=== PATIENT | male | born 1935 | race Caucasian/White ===

== ENCOUNTER 2020-11-07 13:51 | Emergency (ER) | payer MEDICARE, SELFPAY ==
--- NOTE | ~2020-11-07 | XR_ITS ---
EXAMINATION: XR elbow LT min 3V DATE: 11/07/2020 14:35 INDICATION: Red and swollen left elbow post fall 2010 days prior TECHNIQUE: Anteroposterior, two oblique and lateral views of the left elbow were obtained. COMPARISON: None. FINDINGS: Alignment is normal. No fracture. Joint spaces are normal. There are couple small corticated heteroto pic ossicles about the medial epicondyle which could represent sequela of chronic trauma or enthesopa thy. No left elbow joint effusion. No cortical erosions or periosteal reaction. Prominent enthesophyt e at the posterior tip of the olecranon. There is prominent focal overlying soft tissue swelling whic h could be related to hematoma or olecranon bursitis. More diffuse soft tissue swelling with subcutan eous edema about the left elbow extending to the distal upper arm and proximal to mid forearm. IMPRESSION: 1. No left elbow joint effusion or acute osseous abnormality. Reviewed, dictated and finalized at location B.
[2020-11-07 13:54] VITALS: BP 136/57; PULSE 117; RESP 18; TEMP 36.6; O2SAT 96
--- NOTE | 2020-11-07 14:42 | ED.UPPEXIN ---
HPI - Extremity Injury (Upper) General Chief Complaint: Extremity Injury, Upper Stated Complaint: left elbow injury/swelling Time Seen by Provider: 11/07/20 14:34 History of Present Illness HPI narrative: 85 yo male w/ h/o CAD, atrial fibrillation presents to the ED for elbow injury. He struck his left elbow on a table about 10 days ago and sustained a bruise and small abrasion. Since that time the area has become increasingly more swollen. Over the past couple of days it has also become warm and red. He says the pain is minimal and only bothers him if he bumps it. No systemic symptoms. Related Data Allergies Allergy/AdvReac Type Severity Reaction Status Date / Time No Known Allergies Allergy Verified 11/07/20 14:53 Review of Systems Review of Systems: All systems reviewed & are unremarkable except as noted in HPI and below Constitutional: Constitutional: Denies fever(s) and Denies weakness ENT: Reports system reviewed and no additional complaints, except as documented Cardiovascular: Cardiovascular: Denies chest pain Respiratory: Respiratory: Denies dyspnea Gastrointestinal: Gastrointestinal: Reports no additional gastrointestinal complaints Genitourinary: Genitourinary: Reports no additional male genitourinary complaints [facility] Past Medical History Medical History (Updated 11/08/20 @ 00:00 by Mario Dafermin) Atrial fibrillation CAD (coronary artery disease) Social History Social History (Updated 11/07/20 @ 15:25 by Adonis Ibrahim MD) Substance use: never Exam Const: General: healthy appearing, no acute distress and alert Orientation/consciousness: patient oriented x3 HENMT: Head: normal to inspection Neck: Neck: normal visual inspection Resp: Effort & Inspection: normal respiratory effort Auscultation: clear to auscultation bilaterally Cardio: Rate: tachycardic Rhythm: abnormal rhythm irregularly irregular Other: 2+ left radial pusle Skin: Other: erythema and induration over the left olecranon bursa Neuro: General: patient oriented x3, moves all extremities, no focal motor deficits and CN's II-XI intact bilaterally Speech: normal speech Gait exam (Neuro): Normal gait present Extrem: Other: fluctuant enlarged left olecranon bursa Course Vital Signs Vital signs: Vital Signs Temperature 36.6 C 11/07/20 13:54 Pulse Rate 117 H 11/07/20 13:54 Respiratory Rate 18 11/07/20 13:54 Blood Pressure 136/57 L 11/07/20 13:54 Pulse Oximetry 96 11/07/20 13:54 Temperature 36.6 C 11/07/20 13:54 Pulse Rate 78 11/07/20 15:36 Respiratory Rate 20 11/07/20 15:36 Blood Pressure 132/68 11/07/20 15:36 Pulse Oximetry 99 11/07/20 15:36 Procedures Bursa Procedures Bursa #1: Date: 11/07/20 Time: 15:27 Side of body: left Site of Procedure: olecranon bursa XRAY Obtained: normal Antisepsis Used: Chlorhexidine Local Anesthetic: lidocaine 1% and with epi Amount of anesthesia used (mL): 2 Fluid Type: cloudy and other (yellow) Patient Tolerated Procedure: well Complications: none Additional Comments: culture collected MDM - Extremity Injury (Upper) MDM Narrative Medical decision making narrative: Aspirate was cloudy, and there are signs of inflammation on exam. This raises concern for septic bursitis. I will start antibiotics and send a culture. Differential Diagnosis Differential diagnosis: Likely other (Fracture, (septic) bursitis, hematoma) Imaging Data Radiologist's impression: ITS Impressions Elbow X-Ray 11/07/20 14:37 IMPRESSION: 1. No left elbow joint effusion or acute osseous abnormality. Discharge Plan Discharge Clinical Impression: Septic olecranon bursitis of left elbow Patient Disposition: Home, Self-Care Condition: Stable Instructions: Antibiotic Form, Elbow Bursitis (ED) Prescriptions: New clindamycin HCl 150 mg capsule 450 mg PO Q6H 7
[2020-11-07] MEDS: CLINDAMYCIN HCL 150 MG CAP 450 MG PO (14:48)
[2020-11-07 15:36] VITALS: BP 132/68; PULSE 78; RESP 20; O2SAT 99
== END 2020-11-07 15:38 | disposition home or self-care (01) ==
PROVIDERS: Emergency Provider Emergency Medicine; PCP Internal Medicine Geriatric Medicine
DX: M71.122 Other infective bursitis, left elbow (principal); I48.91 Unspecified atrial fibrillation; I25.10 Atherosclerotic heart disease of native coronary artery without angina pectoris
CPT/HCPCS: 20605; 73080; 87070; 87075; 87205; 99283; A9270

== ENCOUNTER 2022-11-22 11:03 | Emergency (ER) | payer MEDICARE, SELFPAY ==
--- NOTE | ~2022-11-22 | XR_ITS ---
EXAMINATION: XR lumbar spine 2-3V DATE: 11/22/2022 13:06 INDICATION: Low back pain TECHNIQUE: Anteroposterior and lateral views of the lumbar spine, and cone-down lateral view of the l umbosacral junction were obtained. COMPARISON: None. FINDINGS: No fracture, dislocation, or subluxation. There is severe loss of intervertebral disc space height at L3-4, L4-5, and L5-S1. Small degenerative osteophytes project from the anterior endplates of multiple vertebral bodies. Vertebral body heights are maintained. There is severe facet joint oste oarthritis of the lower lumbar spine. Calcified atherosclerosis is noted. IMPRESSION: 1. Severe lumbar spondylosis without acute findings. Reviewed, dictated and finalized at location A.
[2022-11-22 11:05] VITALS: BP 137/54; PULSE 60; RESP 16; TEMP 36.4; O2SAT 100
[2022-11-22 11:39] VITALS: BP 145/73; PULSE 63; RESP 16; O2SAT 96
[2022-11-22] MEDS: KETOROLAC 15 MG/ML VIAL (*BKC) IV PUSH (12:36)
[2022-11-22] MEDS: diazePAM INJ (*CRX) 10 MG/2 ML SYRINGE 2 MG IV PUSH (12:37)
--- NOTE | 2022-11-22 12:47 | ED.BACK ---
HPI - Back Pain/Injury General Chief Complaint: Back Pain/Injury Stated Complaint: back pain Time Seen by Provider: 11/22/22 11:37 History of Present Illness HPI Narrative: Patient is an 87-year-old male who presents to the ER with low back pain. Reports its been ongoing over the last week. Noted to chiropractor yesterday and was adjusted and felt better. He woke up today and the pain is more severe. It is on the left side. No radiation. Worse with trying to bend forward or stand up. No numbness or tingling to the lower extremities or groin. No difficulty with urination or defecation. No fevers or chills or sweats. No new rash. Related Data Home Medications Medication Instructions Recorded Confirmed aspirin 81 mg tablet,delayed 81 mg PO DAILY 07/31/21 10/23/22 release (Adult Low Dose Aspirin) cholecalciferol (vitamin D3) 50 50 mcg PO DAILY 07/31/21 10/23/22 mcg (2,000 unit) tablet jsqldnko-aej-tnivc acid 0.4 1 tablet PO DAILY 07/31/21 10/23/22 mg-lycopene 300 mcg-lutein 250 mcg tablet (Centrum Silver) prednisone 10 mg tablet 10 mg PO DAILY 07/31/21 10/23/22 rosuvastatin 40 mg tablet 40 mg PO DAILY 07/31/21 10/23/22 nitroglycerin 0.4 mg sublingual 0.4 mg sublingual Q5M PRN 11/20/21 10/23/22 tablet psyllium husk 3.4 gram/5.4 gram 1 tbsp PO DAILY 10/23/22 10/23/22 oral powder (Metamucil) Allergies Allergy/AdvReac Type Severity Reaction Status Date / Time No Known Allergies Allergy Verified 11/22/22 11:40 Review of Systems Review of Systems: All systems reviewed & are unremarkable except as noted in HPI and below Constitutional: Constitutional: Denies chills, Denies fatigue and Denies fever(s) Genitourinary: Genitourinary: Denies dysuria, Denies urinary frequency and Denies urinary incontinence Musculoskeletal: Musculoskeletal: Reports back pain, Denies arthralgias and Denies joint swelling Integumentary/Breasts: Skin/Breast: Denies erythema and Denies rash Neurologic: Denies focal weakness and Denies numbness PMFSH Past Medical History Medical History Arthritis Asthma Atrial fibrillation CAD (coronary artery disease) Degenerative arthritis of knee, bilateral Surgical History Surgical History History of heart artery stent Family History Family History Other Asthma Breast cancer Diabetes mellitus Family history of Alzheimer's disease Social History Social History Smoking status: Never smoker Alcohol intake: never Substance use: never Living arrangements: alone Occupation/Education: retired Gender identity (if verbalized by the patient): Male Exam Narrative: GENERAL: Well-appearing, well-nourished, and in no acute distress. HEAD: Normocephalic, atraumatic. ENT: Mucous membranes moist. CHEST: Clear to auscultation. No respiratory distress. HEART: Regular rate and rhythm. Normal peripheral pulses. Back: No reproducible midline tenderness to T or L-spine. Mild discomfort lateral to the L4 area but no palpable spasm. EXTREMITIES: Passive range of motion of legs does not result in any pain in the back however active range of motion of the left lower extremity increases left-sided back pain significantly. SKIN: Warm, dry, no rash. NEURO: No focal deficits. Alert and oriented x3. PSYCH: Normal mood and affect. Course Course Emergency Course: Symptoms markedly improved with toradol and valium. Discussed XR restuls. D/c with nsaids and flexeril. Vital Signs Vital signs: Vital Signs Temperature 97.5 F L 11/22/22 11:05 Pulse Rate 60 11/22/22 11:05 Respiratory Rate 16 11/22/22 11:05 Blood Pressure 137/54 L 11/22/22 11:05 Pulse Oximetry 100 11/22/22 11:05 Temperature 97.5 F L 11/22/22 11:05 Pulse Rate 63 11/22/22 11:39 Res
[2022-11-22 13:05] LABS: Add Urine Microscopic? YES; Appearance Urine Clear (Clear); Bacteria Urine None Seen /hpf; Bilirubin Urine Negative (Negative); Blood Urine Negative (Negative); Color Urine Yellow (Yellow); Glucose Urine UA Negative (Negative); Ketones Urine Negative (Negative); Leukocyte Esterase Ur 2+ LEU/UL (Negative); Need Manual Microscopic Reviewed; Nitrate Urine Negative (Negative); Non Pathogenic Casts 0-2; Protein Urine Negative (Negative); RBC Urine 0-2 /hpf (0-2); Specific Grav Ur 1.017 (1.001-1.035); Squamous Epithelial Cell Urine None seen /hpf (Few); Urobilinogen Urine 0.2 mg/dL (<2.0); WBC Urine 0-5 /hpf
== END 2022-11-22 14:35 | disposition home or self-care (01) ==
PROVIDERS: Emergency Provider Emergency Medicine; PCP Internal Medicine Geriatric Medicine
DX: M62.830 Muscle spasm of back (principal); J45.909 Unspecified asthma, uncomplicated; I25.10 Atherosclerotic heart disease of native coronary artery without angina pectoris; M17.0 Bilateral primary osteoarthritis of knee; Z79.82 Long term (current) use of aspirin; Z95.5 Presence of coronary angioplasty implant and graft
CPT/HCPCS: 72100; 81001; 96374; 96375; 99284; J1885; J3360

== ENCOUNTER 2022-12-12 12:57 | Outpatient (CLI) | payer MEDICARE, SELFPAY ==
--- NOTE | ~2022-12-12 | CT_ITS ---
EXAMINATION: CT lumbar spine wo con DATE: 12/12/2022 13:24 INDICATION: Low back pain. TECHNIQUE: Computed tomography (CT) of the lumbar spine was performed without intravenous contrast. A utomated exposure control and iterative reconstruction technique were employed. The dose-length produ ct was 523.10 mGy-cm. COMPARISON: Lumbar spine radiographs 11/22/2022 FINDINGS: There is 9 degrees dextrocurvature of lumbar spine. Vertebral body heights are normal. Ther e is mildly decreased disc height at T12-L1, L1-L2, and L2-L3, severely decreased disc height at L3-L 4 and L4-L5, and mildly decreased disc height at L5-S1. The following disc levels are specifically di scussed: L1-L2: The disc does not extend beyond the endplate margin. There is mild bilateral facet joint osteo arthritis. There is no neural foraminal stenosis. There is no central canal stenosis. L2-L3: The disc is bulging. There is mild right and moderate left facet joint osteoarthritis. There i s mild bilateral neural foraminal stenosis. There is mild central canal stenosis. L3-L4: The disc is bulging. There is severe bilateral facet joint osteoarthritis. There is moderate b ilateral neural foraminal stenosis. There is moderate central canal stenosis. L4-L5: The disc is bulging. There is severe bilateral facet joint osteoarthritis. There is moderate b ilateral neural foraminal stenosis. There is moderate central canal stenosis. L5-S1: The disc is bulging. There is severe bilateral facet joint osteoarthritis. There is moderate b ilateral neural foraminal stenosis. There is mild central canal stenosis. IMPRESSION: 1. Severe lumbar spondylosis. Reviewed, dictated and finalized at location E.
== END 2022-12-12 12:58 | disposition home or self-care (01) ==
PROVIDERS: PCP Internal Medicine Geriatric Medicine; Visit Provider Internal Medicine Geriatric Medicine
DX: M47.896 Other spondylosis, lumbar region (principal); Z85.820 Personal history of malignant melanoma of skin
CPT/HCPCS: 72131

== ENCOUNTER 2023-05-11 15:13 | Emergency (ER) | payer MEDICARE, SELFPAY ==
[2023-05-11 15:31] VITALS: BP 135/45; PULSE 54; RESP 18; TEMP 37.6; O2SAT 97
--- NOTE | 2023-05-11 15:31 | ED.MALEGU ---
HPI - Male Genitourinary General Chief complaint: Urogenital-Male Stated complaint: dizziness,lightheaded Time Seen by Provider: 05/11/23 15:17 Source: patient Mode of arrival: ambulatory Limitations: no limitations History of Present Illness HPI Narrative: Patient is an 88-year-old male who presents with 3 days of urine being on fire . Patient states this morning he woke up and felt fatigued week and had a headache. Patient denies any new or worsening abdominal pain or back pain. Denies any fever, chills, nausea, vomiting, diarrhea. States he has also had or confusion. Patient has primary care doctor's appointment on Thursday. Related Data Home Medications Medication Instructions Recorded Confirmed aspirin 81 mg tablet,delayed 81 mg PO DAILY 07/31/21 05/11/23 release (Adult Low Dose Aspirin) cholecalciferol (vitamin D3) 50 50 mcg PO DAILY 07/31/21 05/11/23 mcg (2,000 unit) tablet bjfswury-rvh-xzyqu acid 0.4 1 tablet PO DAILY 07/31/21 05/11/23 mg-lycopene 300 mcg-lutein 250 mcg tablet (Centrum Silver) prednisone 10 mg tablet 10 mg PO DAILY 07/31/21 05/11/23 rosuvastatin 40 mg tablet 40 mg PO DAILY 07/31/21 05/11/23 nitroglycerin 0.4 mg sublingual 0.4 mg sublingual Q5M PRN Chest 11/20/21 05/11/23 tablet Pain psyllium husk 3.4 gram/5.4 gram 1 tbsp PO DAILY 10/23/22 05/11/23 oral powder (Metamucil) qpzvuz-zabeakon-zydlhgp 2 PO TID 05/11/23 24,000-76,000-120,000 unit capsule,delayed rel (Creon) Allergies Allergy/AdvReac Type Severity Reaction Status Date / Time No Known Allergies Allergy Verified 05/11/23 15:45 Review of Systems Review of Systems: All systems reviewed & are unremarkable except as noted in HPI and below Constitutional: Constitutional: Denies chills, Denies fever(s), Denies headache(s), Denies malaise and Denies weakness Eyes: Eyes: Denies change in vision, Denies eye discharge and Denies irritation ENT: Denies otalgia, Denies headache(s), Denies nasal congestion, Denies nasal discharge, Denies sinus pain and Denies sore throat Cardiovascular: Cardiovascular: Denies chest pain, Denies edema, Denies palpitations and Denies dyspnea Respiratory: Respiratory: Denies cough and Denies dyspnea Gastrointestinal: Gastrointestinal: Denies abdominal pain, Denies diarrhea, Denies nausea and Denies vomiting Genitourinary: Genitourinary: Denies hematuria, Reports dysuria, Denies flank pain, Denies nocturia, Reports urinary frequency and Reports urinary urgency Musculoskeletal: Musculoskeletal: Denies back pain and Denies numbness Integumentary/Breasts: Skin/Breast: Denies pruritus and Denies rash Neurologic: Denies headache(s), Denies numbness and Denies weakness Psychiatric: Psychiatric: Reports no additional psychiatric complaints Endocrine: Endocrine: Denies palpitations PMFSH Past Medical History Medical History Arthritis Asthma Atrial fibrillation CAD (coronary artery disease) Degenerative arthritis of knee, bilateral Surgical History Surgical History History of heart artery stent Family History Family History Other Asthma Breast cancer Diabetes mellitus Family history of Alzheimer's disease Social History Social History Smoking status: Never smoker Alcohol intake: never Substance use: never Lack of Transportation: No Lack of Food: Never True Current Housing: I Have Housing Concerned About Future Housing: No Difficulty Paying Gas/Electric Bills: No Difficulty Paying for Meds: No Currently Unemployed: No Education: Master's Degree or Higher Difficulty w/ Childcare or Family Care: No Living arrangements: alone Occupation/Education: retired Gender identity (if verbalized by the patient): Male Comments
== END 2023-05-11 16:11 | disposition home or self-care (01) ==
PROVIDERS: Emergency Provider Nurse Practitioner Family
DX: N30.00 Acute cystitis without hematuria (principal); M19.90 Unspecified osteoarthritis, unspecified site; J45.909 Unspecified asthma, uncomplicated; I48.91 Unspecified atrial fibrillation; I25.10 Atherosclerotic heart disease of native coronary artery without angina pectoris; M17.0 Bilateral primary osteoarthritis of knee; Z95.5 Presence of coronary angioplasty implant and graft
CPT/HCPCS: 81003; 87077; 87086; 87186; 99213; G0463

== ENCOUNTER 2023-07-17 13:39 | Emergency (ER) | payer MEDICARE, SELFPAY ==
--- NOTE | ~2023-07-17 | XR_ITS ---
EXAMINATION: XR chest 2V DATE: 07/17/2023 14:32 INDICATION: Cough TECHNIQUE: PA and lateral views of the chest are obtained. COMPARISON: None available FINDINGS: The lungs are free of acute opacities. No pleural effusion or pneumothorax. The cardiomedia stinal silhouette is normal. 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 IMPRESSION: 1. No acute cardiopulmonary abnormality. Reviewed, dictated and finalized at location B. LOADER
[2023-07-17 13:55] VITALS: BP 116/63; PULSE 50; RESP 16; TEMP 36.1; O2SAT 98
--- NOTE | 2023-07-17 14:24 | ECG_ITS ---
Rate [place] QRSd QT QTc P QRS T Severity 81 0 98 363 422 50 52 No Severity Defined SINUS RHYTHM WITH FREQUENT PACS MINOR T-WAVE ABNORMALITY BORDERLINE ECG Electronically Signed On 07-18-2023 7:31:27 [employer]NAGER by Gómez Little M.D. NO PREVIOUS ECG AVAILABLE FOR COMPARISON MTDD
--- NOTE | 2023-07-17 14:54 | ED.ABDPAIN ---
HPI - Abdominal Pain General Chief Complaint: Urogenital-Male Stated Complaint: Digestive Problems / UTI Time Seen by Provider: 07/17/23 14:00 Source: patient and family Mode of arrival: ambulatory Limitations: no limitations History of Present Illness HPI narrative: 88-year-old male with history of AFib presents today with complaint of 30 lb weight loss over 3 months, black stools for 3 weeks, belching, indigestion, decreased appetite. Feels very full quickly and unable to eat. Patient states 3 or 4 months ago he went to his primary care and is complaining of abdominal bloating and was given Creon. Patient states he takes Creon several times a day with meals. Recently cut down dose to 2 pills with meals. No longer seen his primary care physician because they had a disagreement. Lately has been dizzy feeling short of breath when ambulatory. States normally exercises daily at why doing weights and treadmill. Patient also reports urinary frequency, burning for the last 2-3 days. Afebrile. No abdominal or back pain. All systems reviewed and negative except as noted above. Related Data Home Medications Medication Instructions Recorded Confirmed aspirin 81 mg tablet,delayed 81 mg PO DAILY 07/31/21 07/17/23 release (Adult Low Dose Aspirin) cholecalciferol (vitamin D3) 50 50 mcg PO DAILY 07/31/21 07/17/23 mcg (2,000 unit) tablet lwvxnvia-iof-bktvm acid 0.4 1 tablet PO DAILY 07/31/21 07/17/23 mg-lycopene 300 mcg-lutein 250 mcg tablet (Centrum Silver) rosuvastatin 40 mg tablet 40 mg PO DAILY 07/31/21 07/17/23 nitroglycerin 0.4 mg sublingual 0.4 mg sublingual Q5M PRN Chest 11/20/21 07/17/23 tablet Pain psyllium husk 3.4 gram/5.4 gram 1 tbsp PO DAILY 10/23/22 07/17/23 oral powder (Metamucil) vitniu-ipvswcqk-qnmrhkb 2 cap PO TID 05/11/23 07/17/23 24,000-76,000-120,000 unit capsule,delayed rel (Creon) Allergies Allergy/AdvReac Type Severity Reaction Status Date / Time No Known Allergies Allergy Verified 07/17/23 13:44 Review of Systems Review of Systems: CONSTITUTIONAL: Denies fever, chills, or sweats. reports fatigue EYES: Denies visual changes, redness, or discharge. ENT: Denies rhinorrhea, congestion, sore throat, or otalgia. CARDIOVASCULAR: Denies chest pain, palpitations, or edema. RESPIRATORY: Denies cough . Reports dyspnea. GASTROINTESTINAL: Denies abdominal pain, nausea, vomiting, or diarrhea. Reports weight loss, change in stools, black stools , indigestion. GENITOURINARY: reports dysuria, frequency. Denies hematuria. SKIN: Denies rash or itching. MUSCULOSKELETAL: Denies back pain, joint pain, or myalgia. NEUROLOGIC: Denies headache, numbness, or weakness. reports dizziness. PSYCHIATRIC: Denies anxiety or depression. All other systems reviewed are negative, except as documented in HPI. [facility] Past Medical History Medical History Arthritis Asthma Atrial fibrillation CAD (coronary artery disease) Degenerative arthritis of knee, bilateral Surgical History Surgical History History of heart artery stent Family History Family History Other Asthma Breast cancer Diabetes mellitus Family history of Alzheimer's disease Social History Social History Smoking status: Never smoker Alcohol intake: never Substance use: never Lack of Transportation: No Lack of Food: Never True Current Housing: I Have Housing Concerned About Future Housing: No Difficulty Paying Gas/Electric Bills: No Difficulty Paying for Meds: No Currently Unemployed: No Education: Master's Degree or Higher Difficulty w/ Childcare or Family Care: No Living arrangements: alone Occupation/Education: retired Gender identity (if verbalized by the patient): Male Comme
== END 2023-07-17 15:00 | disposition short-term general hospital (02) ==
PROVIDERS: Emergency Provider Nurse Practitioner Family; PCP Internal Medicine Geriatric Medicine
DX: R19.5 Other fecal abnormalities (principal); N39.0 Urinary tract infection, site not specified; R63.4 Abnormal weight loss; Z68.21 Body mass index [BMI] 21.0-21.9, adult; R06.00 Dyspnea, unspecified; M19.90 Unspecified osteoarthritis, unspecified site; J45.909 Unspecified asthma, uncomplicated; I48.91 Unspecified atrial fibrillation; I25.10 Atherosclerotic heart disease of native coronary artery without angina pectoris; M17.0 Bilateral primary osteoarthritis of knee; Z79.82 Long term (current) use of aspirin
CPT/HCPCS: 71046; 81003; 87077; 87086; 87186; 93005; 99213; G0463

== ENCOUNTER 2023-07-17 15:13 | Emergency (ER) | payer MEDICARE, SELFPAY ==
[2023-07-17] VITALS (14 sets, daily range): BP systolic 116–146; BP diastolic 46–87; PULSE 64–95; RESP 11–21; TEMP 36.7; O2SAT 95–100
--- NOTE | ~2023-07-17 | CT_ITS ---
EXAMINATION: CT abdomen pelvis w con DATE: 07/17/2023 17:03 INDICATION: Abdominal distention. Weight loss. TECHNIQUE: Computed tomography (CT) of the abdomen and pelvis was performed with 100 mL Omnipaque 350 intravenous contrast. Automated exposure control and iterative reconstruction technique were employe d. The dose-length product was 506.20 mGy-cm. COMPARISON: None. FINDINGS: The visualized portions of the lung bases demonstrate mild atelectasis. Calcified left lung nodules are consistent with old granulomatous disease. No pleural effusion. The heart size is normal . There are coronary artery calcifications. No pericardial effusion. There are greater than 10 masses in the liver measuring up to 3.4 cm. The gallbladder, spleen, pancreas, and adrenal glands are dave l. 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 The prostate is mildly enlarged. There is calcified atherosclerosis of the aorta and many of the other arteries. The re is a 2.7 x 1.8 cm calcified mass in the small bowel mesentery. There is wall thickening of the car chad of the stomach. There is gastrohepatic and periportal lymphadenopathy. There is no ascites. There are small right and large left hydroceles. There is mild thoracic spondylosis and severe lumbar spon dylosis. IMPRESSION: 1. Wall thickening of the cardia of the stomach suspicious for primary adenocarcinoma. 2. Abdominal lymphadenopathy and liver masses, consistent with metastatic disease. Consider ultrasoun d-guided core needle biopsy. 3. 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 4. Small right and large left hydroceles. Reviewed, dictated and finalized at location [facility] IMPRESSION: 1. Wall thickening of the cardia of the stomach suspicious for primary adenocar cinoma. 2. Abdominal lymphadenopathy and liver masses, consistent with metastatic disea se. Consider ultrasound-guided core needle biopsy. 3. 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 4. Small right and large left hydroceles.
--- NOTE | 2023-07-17 15:30 | ECG_ITS ---
Rate [place] QRSd QT QTc P QRS T Severity 73 144 96 398 440 42 52 76 Abnormal ECG SINUS RHYTHM WITH PREMATURE ATRIAL CONTRACTIONS SEPTAL MYOCARDIAL INFARCTION , PROBABLY OLD [40+ ms Q WAVE IN V1/V2] ABNORMAL ECG COMPARED TO ECG 07/17/2023 14:24:01 SINUS ARRHYTHMIA NOW PRESENT MYOCARDIAL INFARCT FINDING NOW PRESENT Electronically Signed On 07-20-2023 17:06:05 [employer] LEAD by Stephen VENCES
[2023-07-17 16:31] LABS: Basophils Percent Auto 0.5 % (0.2-1.2); Eosinophils Absolute Auto 0.1 K/mm3 (0-0.3); Eosinophils Percent Auto 1.5 % (0-4.4); Hematocrit 33.2 % (42.0-52.0); Hemoglobin 10.9 g/dL (14.0-18.0); Immature Granulocyte Absolute 0.03 K/mm3 (0.00-0.031); Immature Granulocyte Percent A 0.3 % (0-0.5); Lymphocytes Absolute Auto 0.99 K/mm3 (0.9-3.2); Lymphocytes Percent Auto 11.4 % (18.3-44.2); Mean Corpuscular HGB Conc 32.8 g/dl (32-36); Mean Corpuscular Hemoglobin 34.8 pg (26-34); Mean Corpuscular Volume 106.1 fl (80-100); Mean Platelet Volume 10.3 fl (7.4-10.4); Monocytes Absolute Auto 0.9 K/mm3 (0.1-0.6); Monocytes Percent Auto 10.1 % (2.6-8.5); Neutrophils Absolute Auto 6.6 K/mm3 (1.3-6.7); Neutrophils Percent Auto 76.2 % (45.5-73.1); Platelet Count Result 345 k/mm3 (150-375); Red Blood Count 3.13 M/mm3 (4.6-6.20); Red Cell Distribution Width 13.5 % (11.5-14.5); White Blood Count 8.7 K/mm3 (4.5-10.0)
[2023-07-17 16:41] LABS: INR 1.1; Prothrombin Time 14.6 Seconds (11.1-14.7)
[2023-07-17 16:42] LABS: Partial Thromboplastin Time 33.4 SECONDS (22.3-36.8)
[2023-07-17 16:49] LABS: Alanine Aminotransferase 91 U/L (6-50); Albumin Level 3.8 g/dL (3.5-5.1); Alkaline Phosphatase 377 U/L (38-126); Anion Gap 7 mmol/L (8-16); Aspartate Amino Transferase 98 U/L (17-59); Bilirubin,Total 0.5 mg/dL (0.2-1.3); Blood Urea Nitrogen 63 mg/dL (9-20); Calcium 9.5 mg/dL (8.4-10.2); Carbon Dioxide 21 mmol/L (22-30); Chloride 107 mmol/L (98-107); Estimated CRCL calculation 31 ml/min; Estimated Glomerular Filt Rate 41; Glucose 101 mg/dL (65-110); Potassium 4.1 mmol/L (3.4-5.0); Sodium 135 mmol/L (137-145)
[2023-07-17 16:50] LABS: Lactic Acid Reflex 0.7 mmol/L (0.7-2.0)
[2023-07-17 16:54] LABS: Platelet Estimate Adequate (Adequate)
[2023-07-17 16:55] LABS: Macrocytosis 1+ (NORMAL); Schistocytes None Seen (NORMAL)
--- NOTE | 2023-07-17 16:55 | ED.GENADULT ---
HPI - General Adult General Chief complaint: Dizziness Stated complaint: dizzy Time Seen by Provider: 07/17/23 15:58 History of Present Illness HPI narrative: 88-year-old male present to the emergency department for evaluation for multiple complaints. Patient has had issues with digestion and was started on Creon by his primary care physician. Patient was having issues with bloating in the Creon did help with the bloating. Patient states since starting the Creon he has had issues with dark stools epigastric pain and increased lightheaded and dizziness. Patient states that he has been decreasing the Creon or the last few weeks and feels that this has been helping but patient is still having issues with dizziness and decreased p.o. intake. Patient has never had follow-up with a GI physician. Patient reports he has had 20 lb of weight loss over the last few months. Related Data Home Medications Medication Instructions Recorded Confirmed aspirin 81 mg tablet,delayed 81 mg PO DAILY 07/31/21 07/17/23 release (Adult Low Dose Aspirin) cholecalciferol (vitamin D3) 50 50 mcg PO DAILY 07/31/21 07/17/23 mcg (2,000 unit) tablet fktbyxyt-jzv-scsnb acid 0.4 1 tablet PO DAILY 07/31/21 07/17/23 mg-lycopene 300 mcg-lutein 250 mcg tablet (Centrum Silver) rosuvastatin 40 mg tablet 40 mg PO DAILY 07/31/21 07/17/23 nitroglycerin 0.4 mg sublingual 0.4 mg sublingual Q5M PRN Chest 11/20/21 07/17/23 tablet Pain psyllium husk 3.4 gram/5.4 gram 1 tbsp PO DAILY 10/23/22 07/17/23 oral powder (Metamucil) pfxgwu-azlvjoib-byusmzm 2 cap PO TID 05/11/23 07/17/23 24,000-76,000-120,000 unit capsule,delayed rel (Creon) Allergies Allergy/AdvReac Type Severity Reaction Status Date / Time No Known Allergies Allergy Verified 07/17/23 15:26 Review of Systems Review of Systems: All systems reviewed & are unremarkable except as noted in HPI and below PMFSH Past Medical History Medical History Arthritis Asthma Atrial fibrillation CAD (coronary artery disease) Degenerative arthritis of knee, bilateral Surgical History Surgical History History of heart artery stent Family History Family History Other Asthma Breast cancer Diabetes mellitus Family history of Alzheimer's disease Social History Social History Smoking status: Never smoker Alcohol intake: never Substance use: never Lack of Transportation: No Lack of Food: Never True Current Housing: I Have Housing Concerned About Future Housing: No Difficulty Paying Gas/Electric Bills: No Difficulty Paying for Meds: No Currently Unemployed: No Education: Master's Degree or Higher Difficulty w/ Childcare or Family Care: No Living arrangements: alone Occupation/Education: retired Gender identity (if verbalized by the patient): Male Exam Narrative: APPEARANCE: Well appearing, no pain, no distress, well-nourished. HEAD: normocephalic, atraumatic. EYES: PERRLA/EOMI, conjunctivae clear. NOSE: Normal no drainage EARS:TMS clear with good light reflex. THROAT: Pharynx clear, no exudate. NECK: Supple. No adenopathy, no masses. RESPIRATORY: Airway patent, respirations nonlabored. Clear to auscultation bilaterally, no rales, rhonchi, wheezing. CARDIOVASCULAR: Regular rate and rhythm without murmurs rubs or gallops. ABDOMINAL: Soft, nontender, nondistended, normal bowel sounds MUSCULOSKELETAL: Moves all extremities. Strength/ROM intact, No edema, No calf tenderness. NEURO: Alert. Cranial nerves II through XII intact. grossly intact SKIN: Warm, dry. Normal Color Course Course Emergency Course: 88-year-old male presents to the ED for evaluation of dark stool, epigastric pain and decreased p.o. intake. Patient did not have any stacy
[2023-07-17] MEDS: MECLIZINE HCL 25 MG TABLET PO (17:18)
[2023-07-17] MEDS: SODIUM CHLORIDE 0.9% IV 1,000 ML 999 ML IV CONT (17:25)
[2023-07-17 17:44] LABS: Lipase 179 U/L (23-300)
[2023-07-17 18:33] LABS: Appearance Urine Turbid (Clear); Bacteria Urine Rare /hpf; Bilirubin Urine Negative (Negative); Blood Urine 2+ (Negative); Color Urine Yellow (Yellow); Glucose Urine UA Negative (Negative); Ketones Urine Negative (Negative); Leukocyte Esterase Ur 3+ LEU/UL (Negative); Need Manual Microscopic Reviewed; Nitrate Urine Positive (Negative); Protein Urine 2+ mg/dL (Negative); RBC Urine 0-2 /hpf (0-2); Specific Grav Ur 1.034 (1.001-1.035); Squamous Epithelial Cell Urine Many /hpf (Few); Urobilinogen Urine 0.2 mg/dL (<2.0); WBC Urine >100 /hpf; pH Urine 5.5 (5.0-9.0)
[2023-07-17 18:34] LABS: Add Urine Microscopic? YES
== END 2023-07-17 19:20 | disposition home or self-care (01) ==
PROVIDERS: Emergency Provider Emergency Medicine; PCP Internal Medicine Geriatric Medicine
DX: N39.0 Urinary tract infection, site not specified (principal); R63.4 Abnormal weight loss; Z68.22 Body mass index [BMI] 22.0-22.9, adult; K31.89 Other diseases of stomach and duodenum; I48.91 Unspecified atrial fibrillation; I25.10 Atherosclerotic heart disease of native coronary artery without angina pectoris; J45.909 Unspecified asthma, uncomplicated; M17.0 Bilateral primary osteoarthritis of knee; Z95.5 Presence of coronary angioplasty implant and graft; R16.0 Hepatomegaly, not elsewhere classified; K63.89 Other specified diseases of intestine; N43.3 Hydrocele, unspecified; Z79.82 Long term (current) use of aspirin
CPT/HCPCS: 36415; 71046; 74177; 80053; 81001; 81003; 83605; 83690; 85025; 85610; 85730; 87077; 87086; 87186; 93005; 96361; 96365; 99284; A9270; J0696; J7030; Q9967

== ENCOUNTER 2023-07-19 17:51 | Emergency (ER) | payer MEDICARE, SELFPAY ==
[2023-07-19] VITALS (11 sets, daily range): BP systolic 124–134; BP diastolic 51–81; PULSE 57–85; RESP 12–18; TEMP 36.7; O2SAT 98–100
--- NOTE | 2023-07-19 18:19 | ECG_ITS ---
Measurements Intervals [place] Rate: 87 P: 46 ME: 160 QRS: 35 QRSD: 101 T: 51 QT: 401 QTc: 483 Interpretive Statements SINUS RHYTHM WITH OCCASIONAL SUPRAVENTRICULAR PREMATURE COMPLEXES SEPTAL MYOCARDIAL INFARCTION , PROBABLY OLD [40+ ms Q WAVE IN V1/V2] COMPARED TO ECG 07/17/2023 15:30:34 NO SIGNIFICANT CHANGES Electronically Signed On 07-20-2023 7:22:49 [employer]IGHTER by Gómez Little M.D.
--- NOTE | 2023-07-19 18:25 | ED.GENADULT ---
HPI - General Adult General Chief complaint: Unspecified Stated complaint: stomach mass Time Seen by Provider: 07/19/23 18:01 History of Present Illness HPI narrative: 88-year-old male reports to the emergency department today to inquire about admission regarding CT scans he had he was here 2 days ago. Patient reported to this emergency department on 07/17/2023 for bloating, dark stools, epigastric pain, lightheadedness, dizziness, Dysphagia and a 20 lb weight loss over the past few months. Patient's workup was significant for a negative hemoccult, positive ortho stats that improved with rehydration, his hemoglobin was 10.9. CT abdomen and pelvis was significant for wall thickening of the cardia of the stomach suspicious for primary adenocarcinoma with abdominal lymphadenopathy liver masses, consistent with metastatic disease. 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 The patient was also found have a UTI and was started on antibiotics. He was offered admission at that point for further evaluation of suspected cancer, however he declined and stated he had things to do. The patient reports today with his son and [id number] at bedside inquiring about admission. He states he feels much better and only has mild lightheadedness now when going from sitting to standing but this has improved since his visit on the . He denies abdominal pain, fever, chest pain or shortness of breath, syncope. He does report persistent dysphagia when he tries to eat, no nausea or emesis. He denies melena or hematochezia, states is dark stools have resolved. Last BM yesterday was normal. Overall, the patient has no overt complaints and again states he feels much better than he did when he was here last. He has been taking his antibiotics and omeprazole as prescribed with improvement in symptoms. 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 He had surgery on his eye and is being followed by [facility]. He was told that if this cancer metastasized it would go to his liver. He had a scan of his liver done in March that was reportedly unremarkable. Related Data Home Medications Medication Instructions Recorded Confirmed aspirin 81 mg tablet,delayed 81 mg PO DAILY 07/31/21 07/17/23 release (Adult Low Dose Aspirin) cholecalciferol (vitamin D3) 50 50 mcg PO DAILY 07/31/21 07/17/23 mcg (2,000 unit) tablet onjfivbc-ycw-pqvzx acid 0.4 1 tablet PO DAILY 07/31/21 07/17/23 mg-lycopene 300 mcg-lutein 250 mcg tablet (Centrum Silver) rosuvastatin 40 mg tablet 40 mg PO DAILY 07/31/21 07/17/23 nitroglycerin 0.4 mg sublingual 0.4 mg sublingual Q5M PRN Chest 11/20/21 07/17/23 tablet Pain psyllium husk 3.4 gram/5.4 gram 1 tbsp PO DAILY 10/23/22 07/17/23 oral powder (Metamucil) szeprl-kcyvqcin-yynnebl 2 cap PO TID 05/11/23 07/17/23 24,000-76,000-120,000 unit capsule,delayed rel (Creon) Allergies Allergy/AdvReac Type Severity Reaction Status Date / Time No Known Allergies Allergy Verified 07/19/23 18:37 Review of Systems Review of Systems: CONSTITUTIONAL: Denies fever, chills, or sweats. EYES: Denies visual changes, redness, or discharge. ENT: Denies rhinorrhea, congestion, sore throat, or otalgia. CARDIOVASCULAR: Denies chest pain, palpitations, or edema. RESPIRATORY: Denies cough or dyspnea. GASTROINTESTINAL: See HPI GENITOURINARY: Denies dysuria or hematuria. SKIN: Denies rash or itching. MUSCULOSKELETAL: Denies back pain, joint pain, or myalgia. NEUROLOGIC: Denies headache, numbness, or weakness. PSYCHIATRIC: Denies anxiety or depression. FOR[facility]LY [facility], [facility] Past Medical History Medical History Arthritis Asthma Atrial fibrillation CAD (coronary artery disease) Degenerative arthritis of knee, bilateral Surgical History Surgical Histo
[2023-07-19] MEDS: SODIUM CHLORIDE 0.9% IV 1,000 ML 999 ML IV CONT (18:38)
[2023-07-19 18:45] LABS: Basophils Percent Auto 0.5 % (0.2-1.2); Eosinophils Absolute Auto 0.2 K/mm3 (0-0.3); Eosinophils Percent Auto 2.6 % (0-4.4); Hemoglobin 10.7 g/dL (14.0-18.0); Immature Granulocyte Absolute 0.02 K/mm3 (0.00-0.031); Immature Granulocyte Percent A 0.3 % (0-0.5); Lymphocytes Absolute Auto 1.14 K/mm3 (0.9-3.2); Lymphocytes Percent Auto 15.1 % (18.3-44.2); Mean Corpuscular HGB Conc 31.5 g/dl (32-36); Mean Corpuscular Hemoglobin 33.4 pg (26-34); Mean Corpuscular Volume 106.3 fl (80-100); Mean Platelet Volume 9.9 fl (7.4-10.4); Monocytes Absolute Auto 0.7 K/mm3 (0.1-0.6); Monocytes Percent Auto 9.5 % (2.6-8.5); Neutrophils Absolute Auto 5.4 K/mm3 (1.3-6.7); Platelet Count Result 316 k/mm3 (150-375); Red Cell Distribution Width 13.5 % (11.5-14.5); White Blood Count 7.6 K/mm3 (4.5-10.0)
[2023-07-19 18:55] LABS: Alanine Aminotransferase 81 U/L (6-50); Albumin Level 3.6 g/dL (3.5-5.1); Alkaline Phosphatase 354 U/L (38-126); Anion Gap 7 mmol/L (8-16); Aspartate Amino Transferase 88 U/L (17-59); Bilirubin,Total 0.3 mg/dL (0.2-1.3); Blood Urea Nitrogen 44 mg/dL (9-20); Calcium 9.1 mg/dL (8.4-10.2); Carbon Dioxide 24 mmol/L (22-30); Chloride 108 mmol/L (98-107); Estimated CRCL calculation 35 ml/min; Estimated Glomerular Filt Rate 48; Glucose 122 mg/dL (65-110); Potassium 3.9 mmol/L (3.4-5.0); Sodium 139 mmol/L (137-145)
[2023-07-19 18:56] LABS: Macrocytosis 1+ (NORMAL); Platelet Estimate Adequate (Adequate)
[2023-07-19 18:57] LABS: Ovalocytes 1+ (NORMAL); Schistocytes None Seen (NORMAL)
[2023-07-19 18:58] LABS: INR 1.1; Prothrombin Time 14.6 Seconds (11.1-14.7)
[2023-07-19 18:59] LABS: Partial Thromboplastin Time 32.7 SECONDS (22.3-36.8)
[2023-07-19 19:41] LABS: Appearance Urine Cloudy (Clear); Bacteria Urine None Seen /hpf; Bilirubin Urine Negative (Negative); Blood Urine Negative (Negative); Color Urine Yellow (Yellow); Glucose Urine UA Negative (Negative); Ketones Urine Negative (Negative); Leukocyte Esterase Ur 2+ LEU/UL (Negative); Nitrate Urine Negative (Negative); Protein Urine 1+ mg/dL (Negative); RBC Urine 0-2 /hpf (0-2); Specific Grav Ur 1.023 (1.001-1.035); Squamous Epithelial Cell Urine None seen /hpf (Few); Urobilinogen Urine 0.2 mg/dL (<2.0); WBC Urine >100 /hpf
[2023-07-19 19:53] LABS: Add Urine Microscopic? YES
== END 2023-07-19 20:18 | disposition home or self-care (01) ==
PROVIDERS: Emergency Provider Physician Assistant; PCP Internal Medicine Geriatric Medicine
DX: K31.89 Other diseases of stomach and duodenum (principal); R16.0 Hepatomegaly, not elsewhere classified; R82.998 Other abnormal findings in urine; I48.91 Unspecified atrial fibrillation; I25.10 Atherosclerotic heart disease of native coronary artery without angina pectoris; J45.909 Unspecified asthma, uncomplicated; M19.90 Unspecified osteoarthritis, unspecified site; M17.0 Bilateral primary osteoarthritis of knee; Z85.840 Personal history of malignant neoplasm of eye; Z79.82 Long term (current) use of aspirin; I49.1 Atrial premature depolarization; R94.31 Abnormal electrocardiogram [ECG] [EKG]
CPT/HCPCS: 36415; 80053; 81001; 85025; 85610; 85730; 87086; 93005; 96360; 99283; 99284; J7030

== ENCOUNTER 2024-04-05 16:20 | Outpatient (NON) | payer MEDICARE, SELFPAY ==
[2024-04-05 19:27] LABS: Toxigenic C. Diff POSITIVE (NEGATIVE)
== END 2024-04-05 16:21 | disposition home or self-care (01) ==
PROVIDERS: PCP Internal Medicine Geriatric Medicine
DX: C15.5 Malignant neoplasm of lower third of esophagus (principal); R19.7 Diarrhea, unspecified
CPT/HCPCS: 87493